=== PATIENT | male | born 1950 | race Caucasian/White ===

== ENCOUNTER 2019-07-29 10:06 | Inpatient (IN) ==
--- NOTE | 2019-07-27 08:53 | EKG Report ---
Test Performed on : 07/27/2019 08:45:31 AM Test Reason : PAT Blood Pressure : / mmHG Vent. Rate : 095 BPM Atrial Rate : 092 BPM P-R Int : 000 ms QRS Dur : 132 ms QT Int : 354 ms P-R-T Axes : 000 -17 007 degrees QTc Int : 444 ms Atrial fibrillation. Right bundle branch block Inferior infarct , age undetermined Abnormal ECG When compared with ECG of 03-AUG-2018 13:16, No significant change was found Confirmed by Lb Clemons MD ([id number]) on 07/28/2019 6:17:55 PM
[2019-07-27 09:14] LABS: BASO# 0.12 X1000 (0.0-0.2); BASO% 0.8 % (0.0-0.8); EOS% 0.6 % (0.0-10.0); HEMATOCRIT 44.9 % (42.0-52.0); HEMOGLOBIN 15.1 g/dL (14.0-18.0); IMM GRAN% 1.9 % (0.0-0.5); LYMPH# 3.28 X1000 (1.2-3.4); LYMPH% 20.9 % (20.5-51.1); MCH 30.4 PG (27-31); MCHC 33.6 g/dL (33-37); MCV 90.5 FL (81-99); MONO# 1.21 X1000 (0.11-0.59); MONO% 7.7 % (1.7-9.3); MPV 9.8 FL (7.4-10.4); NEUT# 10.69 X1000 (1.4-6.5); NEUT% 68.1 % (42.2-75.2); PLT 422 X1000 (130-400); RBC 4.96 XMIL (4.7-6.1); RDW 12.2 % (11.5-14.5)
[2019-07-27 09:34] LABS: BANDS 6 % (0-1); LYMPHS 20 % (21-51); MONO 8 % (1-9); SEGS 64 % (42-75)
[2019-07-27 09:37] LABS: CALCIUM 9.6 mg/dL (8.8-10.2); CREATININE 1.3 mg/dL (0.7-1.2); POTASSIUM 4.8 mmol/L (3.5-5.1)
[2019-07-29] MEDS ORDERED: LR 1,000 ML ONE (11:12)
[2019-07-29] MEDS ORDERED: KEFZOL 1 GM/D5W 2 GM/100 ML IVPB ONE (11:12)
[2019-07-29] MEDS ORDERED: LR 500 ML ONE (12:39)
[2019-07-29] MEDS ORDERED: DIPRIVAN 1% ONE (13:29)
[2019-07-29] MEDS ORDERED: ROBINUL ONE (13:29)
[2019-07-29] MEDS ORDERED: XYLOCAINE-MPF 2% ONE ×2 (13:29→14:39)
[2019-07-29] MEDS ORDERED: FENTANYL ONE (13:33)
[2019-07-29] MEDS ORDERED: MARCAINE 0.5% PF ONE (14:21)
[2019-07-29] MEDS ORDERED: XYLOCAINE 1% ONE (14:21)
[2019-07-29] MEDS ORDERED: ZOFRAN ONE (15:00)
[2019-07-29] MEDS ORDERED: ZOFRAN IV PRN (15:42)
[2019-07-29] MEDS ORDERED: MORPHINE IV PRN (15:42)
[2019-07-29] MEDS ORDERED: PNEUMOVAX 23 IM ONE (16:41)
[2019-07-29] MEDS ORDERED: FLU VACCINE IM ONE (16:45)
--- NOTE | 2019-07-29 20:28 | OPERATIVE NOTE ---
PROCEDURE DATE: 07/29/2019 PREOPERATIVE DIAGNOSES: 1. Left 3rd toe osteomyelitis. 2. Left chronic foot ulcer. POSTOPERATIVE DIAGNOSES: 1. Left 3rd toe osteomyelitis. 2. Left chronic foot ulcer. PROCEDURES: 1. Left 3rd toe amputation with partial metatarsal amputation. 2. Irrigation and debridement to bone, left foot. SURGEON: Dr. Tonio Iglesias. ROVING OR YARN COLOR CHECKER: TERRY Goodwin, who was an integral part of the case, helping with all aspects of the case, helping to increase our OR efficiency greatly. ANESTHESIA: General with LMA. TOURNIQUET TIME: Less than an hour. IMPLANTS: None. DISPOSITION: To PACU, hemodynamically stable. INDICATION FOR PROCEDURE: Mr. Serrano is a 69-year-old male who presented my office this week for evaluation of his toe. He has had a had chronic draining ulcer on the plantar aspect of his forefoot for 5 years. Here recently it has been getting a little bit worse, and he wanted to come in and get it taken care of. He ended getting an MRI which did show osteomyelitis in the 3rd toe and 3rd metatarsal head, so I discussed with him about amputation and irrigation and debridement. He expressed understanding and wished to proceed. DESCRIPTION OF PROCEDURE: Mr. Serrano was identified in the preop holding area. The left foot was marked as the correct surgical site. He was then wheeled to the operating room and placed supine on the operating table. All bony prominences were well padded. He was induced under general anesthesia. LMA was placed. The left lower extremity was then prepped with chlorhexidine, gluconate scrub and then Betadine solution and draped in normal sterile fashion. A surgical pause was performed. We identified the correct patient, correct side, and the correct procedure. Preop antibiotics were given. An Esmarch was used at the calf only. We did not exsanguinate the leg, and the Esmarch was used as a tourniquet. I started with debridement of the ulcer to see how deep it was. We got all the callused area and skin off. I then amputated the third toe at the MTP joint, and then I cultured that area and sent off those cultures. I then took a sagittal saw and resected the distal 3rd metatarsal. I then used a rongeur and rongeured all the tissue around that area, even taking a knife and cutting a lot of that material away. I then took a curette as well and really curetted that whole area out so we could get that tissue back to a nice healthy-appearing tissue, which we were able to do. Once we had performed an extremely thorough debridement, I did not see any areas of purulence after that. I did not see any nonviable tissue either. Everything looked nice and viable. I then irrigated everything copiously with normal saline. I then closed more the dorsal and distal aspect of the wound and left the plantar aspect open. I closed it with 2-0 Maxon suture followed by nylon on the skin. We only loosely closed it because it needs to drain. I then packed the wound with iodoform on the bottom, and then a soft dressing was applied. The tourniquet was let down. He had good cap refill return to the toes. He was then recovered from general anesthesia, moved to his own bed and taken to the PACU in stable condition. PLAN: Postoperatively, he will be nonweightbearing to the left lower extremity. I will admit him to the hospital for IV antibiotics and will follow his cultures. Will get Retail Service Lead Merchandiser involved as well for discharge planning. cc: Tonio Iglesias MD
[2019-07-29] MEDS: KEFZOL 1 GM/D5W 1 GM/50 ML IVPB IV SCH (23:21)
[2019-07-30] MEDS: OXY IR PO PRN ×7 (00:23→22:46)
[2019-07-30] MEDS: KEFZOL 1 GM/D5W 1 GM/50 ML IVPB IV SCH ×3 (05:47→22:57)
[2019-07-30] MEDS: LOVENOX SUBQ SCH (05:47)
[2019-07-30] MEDS ORDERED: PERIDEX MT ONE (06:41)
[2019-07-30] MEDS: LOPRESSOR PO SCH ×4 (08:22→22:58)
[2019-07-30] MEDS: PERIDEX MT SCH ×2 (08:22→22:58)
[2019-07-30] MEDS: LIDODERM TOP SCH ×2 (12:36→22:57)
--- NOTE | 2019-07-30 12:43 | ORTHOPAEDICS PROGRESS NOTE ---
DATE: 07/30/2019 SUBJECTIVE: Mr. Serrano is lying in bed this morning. Overall, he is feeling fine. OBJECTIVE: Left lower extremity exam, dressing is clean, dry, and intact. He is able move his other toes, not really any drainage on the dressings today. ASSESSMENT: Status post left 3rd toe amputation with some of the metatarsal with irrigation and debridement. PLAN: Mr. Serrano is doing well. We will plan on keeping him on IV antibiotics. We will watch his cultures, once they come back will tailor his antibiotics to what grows out. I will keep him here through the weekend. He is nonweightbearing to left lower extremity and will change his dressing in the morning. cc: Tonio Iglesias MD
[2019-07-30] MEDS: LIPITOR PO SCH (22:57)
[2019-07-30] MEDS: PRINZIDE 20/12.5MG PO SCH (22:57)
[2019-07-30] MEDS: VITAMIN D PO SCH (22:57)
[2019-07-30] MEDS: PROSCAR PO SCH (22:58)
[2019-07-30] MEDS: FLOMAX PO SCH (22:58)
[2019-07-31] MEDS: OXY IR PO PRN ×7 (02:08→21:31)
[2019-07-31] MEDS: KEFZOL 1 GM/D5W 1 GM/50 ML IVPB IV SCH ×3 (05:22→21:33)
[2019-07-31] MEDS: LOPRESSOR PO SCH ×4 (05:22→22:19)
[2019-07-31] MEDS: LOVENOX SUBQ SCH (05:22)
[2019-07-31] MEDS: LIDODERM TOP SCH ×2 (08:45→21:32)
[2019-07-31] MEDS: PERIDEX MT SCH ×2 (08:45→21:32)
--- NOTE | 2019-07-31 12:09 | ORTHOPAEDICS PROGRESS NOTE ---
DATE: 07/31/2019 SUBJECTIVE: Mr. Serrano is lying in bed this morning. Pain is well controlled. He says his foot is actually feeling really good. OBJECTIVE: Left lower extremity exam, I took the dressing on down and he actually does not have hardly any drainage from his wounds and the swelling of the foot has come down as well. I removed all the packing that was there. I then repacked that area with a Vashe soaked gauze and the area I repacked was on the plantar aspect. We then redressed it with a soft dressing. ASSESSMENT: Status post left 3rd toe amputation to the metatarsal with irrigation and debridement. PLAN: I think Mr. Serrano is doing really well. We have not gotten final cultures back yet. He desires to go home from the hospital and so we will get everything set. More than likely we will aim for 08/02/2019, for discharge if his cultures are finalized and we can get him on an antibiotic. cc: Tonio Iglesias MD
--- NOTE | 2019-07-31 14:35 | ORTHOPAEDICS PROGRESS NOTE ---
DATE: 07/31/2019 Mr. Serrano is seen today status post debridement of his toe. Dr. Iglesias apparently already came by this morning and changed the bandage. He states he is doing well at the present time. His bandage is clean and dry. He is afebrile. Cultures were pending. We will continue to monitor him in the hospital. cc: MD Tonio Londono MD
[2019-07-31] MEDS: FLOMAX PO SCH (21:31)
[2019-07-31] MEDS: LIPITOR PO SCH (21:31)
[2019-07-31] MEDS: VITAMIN D PO SCH (21:31)
[2019-07-31] MEDS: PRINZIDE 20/12.5MG PO SCH (21:31)
[2019-07-31] MEDS: PROSCAR PO SCH (21:32)
[2019-08-01] MEDS: SENOKOT PO PRN (00:37)
[2019-08-01] MEDS: OXY IR PO PRN ×7 (00:37→22:23)
[2019-08-01] MEDS: LOVENOX SUBQ SCH ×2 (04:51→05:12)
[2019-08-01] MEDS: KEFZOL 1 GM/D5W 1 GM/50 ML IVPB IV SCH ×4 (04:51→21:51)
[2019-08-01] MEDS: LOPRESSOR PO SCH ×3 (06:46→22:25)
[2019-08-01] MEDS: PERIDEX MT SCH ×2 (08:10→21:51)
[2019-08-01] MEDS: LIDODERM TOP SCH ×2 (08:11→21:51)
--- NOTE | 2019-08-01 10:06 | ORTHOPAEDICS PROGRESS NOTE ---
DATE: 08/01/2019 Mr. Serrano is seen status post debridement and irrigation with partial amputation of his toe. At the present time, his bandage is clean and dry. He is afebrile. Cultures are pending. We will plan on changing the bandage per Dr. Iglesias tomorrow. We will consider discharge home at that time if cultures are definitive. cc: MD Tonio Londono MD
[2019-08-01] MEDS: FLOMAX PO SCH (21:50)
[2019-08-01] MEDS: VITAMIN D PO SCH (21:50)
[2019-08-01] MEDS: PROSCAR PO SCH (21:50)
[2019-08-01] MEDS: PRINZIDE 20/12.5MG PO SCH (21:51)
[2019-08-01] MEDS: LIPITOR PO SCH (21:51)
[2019-08-02] MEDS: LOPRESSOR PO SCH ×2 (00:39→06:10)
[2019-08-02] MEDS: OXY IR PO PRN ×3 (01:44→09:09)
[2019-08-02] MEDS: KEFZOL 1 GM/D5W 1 GM/50 ML IVPB IV SCH (05:28)
[2019-08-02] MEDS: LOVENOX SUBQ SCH (05:28)
[2019-08-02 08:06] VITALS: BP 133/64
[2019-08-02] MEDS: PERIDEX MT SCH (09:09)
[2019-08-02] MEDS: SENOKOT PO PRN (09:09)
[2019-08-02] MEDS: LIDODERM TOP SCH (09:10)
--- NOTE | 2019-08-02 09:14 | ORTHOPAEDICS PROGRESS NOTE ---
DATE: 08/02/2019 SUBJECTIVE: Mr. Serrano is lying in bed this morning and overall feeling okay. He did well over the weekend. OBJECTIVE: Left lower extremity exam, the incision is clean and dry. The wound on the bottom looks clean. I do not see any drainage from it. The swelling has come down, and I do not see any erythema around the foot either. We changed his dressing today, and I repacked the wound with a Vashe soaked gauze. ASSESSMENT: Status post left third toe amputation to the metatarsal, and irrigation and debridement. PLAN: I discussed with Mr. Serrano what I wanted him to do about dressing changes. He is going to do his dressing changes daily, and packing it with Vashe soaked gauze. I will see him this Friday in the clinic for reevaluation. He is nonweightbearing left lower extremity, and will need crutches upon discharge. cc: Tonio Iglesias MD
--- NOTE | 2019-08-24 11:07 | DISCHARGE SUMMARY ---
ADMISSION DATE: 07/29/2019 DISCHARGE DATE: 08/02/2019 ADMISSION DIAGNOSIS: Left chronic osteomyelitis 3rd metatarsal and toe. DISCHARGE DIAGNOSIS: Left chronic osteomyelitis 3rd metatarsal and toe. PROCEDURES: On 07/29/2019, Dr. Iglesias performed a left 3rd toe amputation with partial metatarsal amputation and irrigation and debridement to bone. HOSPITAL COURSE: Mr. Serrano is a 69-year-old male, who presented to Dr. Iglesias's office for evaluation of his left 3rd toe. He has had a chronic draining ulcer for 5 years. Initially, he had some sort of puncture wound to the foot and has since had the plantar wound. When he came in to the office, he was ready to have it addressed. When we got an MRI that showed osteomyelitis of the 3rd toe and 3rd metatarsal head, Dr. Iglesias's discussed with him about amputation, irrigation, and debridement. He wished to proceed with that. He was taken to the operating room on 07/29/2019. He tolerated the procedure well and was transferred to the recovery room. After satisfactory recovery, he was transferred to [address] [place] [address]. He was continued on IV antibiotics for several days. The amputation site was dressed daily and assessed. We kept him over the weekend to make sure we got his cultures back and to make sure the infection was resolved. His cultures came back with Peptostreptococcus and they were not able to do a sensitivity on that, so he was continued on broad-spectrum antibiotics. At this time, the amputation site looks nice and clean. There is no erythema or drainage. Overall, his swelling looks good. The wound is well- approximated. His white count is normal. He has been afebrile, and his vital signs are all stable. His current temperature is 98.5 degrees, pulse is 76, respirations are 20, blood pressure is 133/74. He is 98% on room air. He has voided and is tolerating fluids well. His pain is controlled and at this time he is ready discharge. DISCHARGE MEDICATIONS: Albuterol sulfate 8.5 g inhalation 4-6 hours as needed, lidocaine patch topically, lisinopril/hydrochlorothiazide 20/12.5 mg p.o. at bedtime, Flomax 0.4 mg at bedtime, atorvastatin 80 mg p.o. at bedtime, vitamin D3 1000 units at bedtime, Proscar 5 mg p.o. at bedtime, [place] 10 mg 1 every 4 hours as needed for pain, metoprolol 50 mg p.o., Augmentin 500/125 mg 1 tablet p.o. for 30 days. DISCHARGE DISPOSITION: Mr. Serrano is being discharged home to self-care. He is going to dress his wound daily. We discussed with him signs and symptoms of postoperative infection and when to call the office. He is going to continue his Augmentin for 30 days. We will see him in a week from discharge. He knows to call with any questions or concerns. We want him minimally weightbearing on this left side. Dictated by TERRY Goodwin for Tonio Iglesias MD cc: TERRY Goodwin MD
== END 2019-08-02 11:52 | disposition home or self-care (01) | DRG 476 ==
LOC: OR 10:06 → 4N 10:06 → OBSVTOIN 15:13
PROVIDERS: ADMIT Orthopaedic Surgery; ATTEND Orthopaedic Surgery